=== PATIENT | male | born 1975 | race Caucasian/White ===

== ENCOUNTER 2017-02-10 19:56 | Emergency (ER) | payer SELFPAY ==
[~2017-02-10] VITALS: Ht 182.9 cm; Wt 100.4 kg
[2017-02-10 20:20] VITALS: TEMP 36.8; Ht 182.9 cm; Wt 100.4 kg
[2017-02-10] MEDS ORDERED: IBUP-103 PO (20:39)
[2017-02-10] MEDS ORDERED: PENI500T2 PO (20:45)
[2017-02-10] MEDS ORDERED: HYDR-5688 PO (20:45)
[2017-02-10] MEDS ORDERED: PENICILLIN HOME PACK 500MG (4 DOSES)BTL PO ONE (20:45)
[2017-02-10] MEDS ORDERED: NORCO 5/325MG HOME PACK PO ONE (20:45)
[2017-02-10 21:05] VITALS: BP 127/90; PULSE 63; O2SAT 98
--- NOTE | 2017-02-11 01:18 | EMERGENCY ROOM VISIT NOTE ---
ED Visit Note First contact with patient: 20:24 CHIEF COMPLAINT: Toothache. HISTORY OF PRESENT ILLNESS: Mr. Richey is a 41-year-old white male who ambulates into the ED accompanied by female friend complaining of left maxillary dental pain. He reports a progressive dental pain for 24 hours over the left maxillary area. The pain is now steady and severe and radiates to the face. He has been using ibuprofen but tonight the pain became severe. Currently he is complaining of throbbing pain in the area of tooth 13. He rates his discomfort 10/10. His pain does radiate superiorly into the area of the maxillary sinus. His pain worsens with chewing and palpation. Associated with his pain he reports he noted facial swelling in the area just above his pain. He denies any associated symptoms including fevers, chills, sweats, sore throat , difficulty swallowing, voice changes, drooling. REVIEW OF SYSTEMS: As noted above in History of Present Illness. 8 body systems were reviewed with this patient and found to be negative unless noted above otherwise. PMH: Status post appendectomy. CURRENT MEDICATION: Patient denies. ALLERGIES TO MEDICATION: Patient denies. SOCIAL HISTORY: Patient is currently employed; he feels safe in his home environment; he admits to tobacco and alcohol use. PHYSICAL EXAM: Vital Signs: Date Time Temp Pulse Resp B/P (MAP) Pulse Ox O2 Delivery O2 Flow Rate FiO2 02/10/17 21:05 63 18 127/90 98 02/10/17 20:20 36.8 65 17 138/92 98 Room Air General: 42 year-old male in moderate distress due to pain, nontoxic appearing, afebrile and hemodynamically stable. Neurological: Awake, alert and oriented to person, place and time. Answering questions appropriately and following commands. Normal gait. Good hand eye coordination. No focal motor or sensory deficits. Skin: Warm, dry and pink. No soft tissue lesions, rashes, or trauma noted. HEENT: Atraumatic and normocephalic. Oral cavity is moist and pink. Airway is patent. Uvula is midline. Airway is patent. Speech is normal. No intraoral trauma is noted. There is no obvious signs of dental decay. Gingiva erythema and edema present just superior to the involved tooth. Facial swelling in the same area was noted but no fixed palpable abscesses were palpable. No cervical or submandibular lymphadenopathy. ED COURSE: Patient is assessed as noted above. Patient's medication list was reviewed. Patient is educated about his findings and instructed on his treatment plan; he verbalizes understanding and agreement with this plan. CLINIC IMPRESSION: Dental abscess. DISPOSITION: Patient discharged home in stable condition; prior to departure he was reassessed and subjectively reported he was feeling the same. PLAN: Patient was prescribed 500 mg of Pen-Vee K 4 times a day for 10 days. Comfort measures including proper dental hygiene, mechanical/liquid diet, covering the affected area with dental wax and a sliding pain scale were discussed with the patient. He was prescribed [place] and given appropriate narcotic precautions and his name was checked and state database and no red flags were noted. Patient was encouraged to followup with personal dentist for definitive care and treatment. Patient was encouraged to return the ED for worsening/uncontrolled pain, worsening facial swelling, fevers or any new/concerning symptoms.
== END 2017-02-10 21:05 | disposition home or self-care (01) ==
LOC: C.EDB 19:57 → C.EDD 21:05
DX: K04.7 Periapical abscess without sinus (principal); Z90.89 Acquired absence of other organs; Z72.0 Tobacco use